=== PATIENT | female | born 1975 | race Two or more races ===

== ENCOUNTER → 2018-04-08 | Emergency (ER) | payer OTHER ==
[~2018-04-08] MED LIST: LACTULOSE 20 GM/30 ML UDC (FOR ORAL USE ONLY) ONE; LACTULOSE 20 GM/30 ML UDC (FOR ORAL USE ONLY) PO ONE
[2018-04-08 18:27] VITALS: BP 122/80; PULSE 66; TEMP 98.9; BMI 28.2
--- NOTE | 2018-04-08 20:41 | PDOC ---
History of Present Illness - General Chief Complaint: Constipation Stated Complaint: CONSTIPATION/28 WKS Time Seen by Provider: 04/08/18 20:40 Past History - Past Medical History Allergies/Adverse Reactions: Allergies Allergy/AdvReac Type Severity Reaction Status Date / Time No Known Allergies Allergy Verified 04/08/18 18:24 COPD: No - Suicide/Smoking/Psychosocial Hx Smoking History: Never smoked Have you smoked in the past 12 months: No Information on smoking cessation initiated: No Hx Alcohol Use: No Drug/Substance Use Hx: No Substance Use Type: None *Physical Exam - Vital Signs Last Vital Signs Temp Pulse Resp BP Pulse Ox 98.9 F 66 18 122/80 100 04/08/18 18:24 04/08/18 18:24 04/08/18 18:24 04/08/18 18:24 04/08/18 18:24 Medical Decision Making - Medical Decision Making 04/09/18 22:58 Pt came with complaint of constipation in . Walking about the ER. Pt was given a dose of lactulose and eloped prior to my full evaluation of her. *DC/Admit/Observation/Transfer Diagnosis at time of Disposition: Constipation - Discharge Dispostion Disposition: ELOPED Condition at time of disposition: Improved Decision to Admit order: No - Referrals Referrals: Queta Pavon MD [Primary Care Provider] - - Patient Instructions Printed Discharge Instructions: DI for Constipation - Post Discharge Activity
== END | disposition left against medical advice (07) ==
LOC: JER 18:08
DX: O26.893 Other specified pregnancy related conditions, third trimester (principal); R19.8 Other specified symptoms and signs involving the digestive system and abdomen; K59.00 Constipation, unspecified; Z3A.28 28 weeks gestation of pregnancy
CPT/HCPCS: 99282-25

== ENCOUNTER 2018-05-25 12:40 | Inpatient (IN) | payer OTHER ==
[2018-05-25] MEDS ORDERED: ELECTROLYTE-148 SOLN 500 ML IV ONE (13:00)
[2018-05-25 13:06] VITALS: BMI 30.7
[2018-05-25] MEDS: ELECTROLYTE-148 SOLN 1,000 ML IV SCH ×2 (13:30→15:10)
[2018-05-25 13:54] LABS: BASO % 0.3 % (0-2.0); EOS % 0.4 % (0-4.5); LYMPH % 36.9 % (8-40); MCHC 32.3 g/dl (32.0-36.0); MEAN CELL VOLUME 68.2 fl (80-96); MEAN PLT VOLUME 9.2 fl (7.5-11.1); MONO % 8.6 % (3.8-10.2); NEUT % 53.8 % (42.8-82.8); PLATELET COUNT 223 K/MM3 (134-434); RBC 4.98 M/mm3 (3.60-5.2); RDW 15.1 % (11.6-15.6); WHITE BLOOD COUNT 6.4 K/mm3 (4.0-10.0)
[2018-05-25 14:07] LABS: INR 0.96 (0.82-1.09); PROTHROMBIN TIME (PATIENT) 10.9 SEC (9.7-13.0)
[2018-05-25] MEDS ORDERED: CITRIC ACID/SODIUM CITRATE 30 ML UNIT-DOSE CUP PO ONE (14:15)
[2018-05-25 14:16] LABS: ANION GAP 9 (8-16); BLOOD UREA NITROGEN 12 mg/dL (7-18); CALCIUM 9.2 mg/dL (8.5-10.1); CHLORIDE 109 mmol/L (98-107); CO2 21 mmol/L (21-32); CREATININE 0.5 mg/dL (0.55-1.02); GLUCOSE,RANDOM 54 mg/dL (74-106); POTASSIUM 3.9 mmol/L (3.5-5.1); SODIUM 139 mmol/L (136-145)
[2018-05-25 14:51] LABS: ANISOCYTOSIS 1+; MACROCYTOSIS 0; PLATELET ESTIMATE NORMAL
[2018-05-25] MEDS ORDERED: ePHEDrine SULFATE 50 MG/1 ML AMPULE ONE (16:41)
[2018-05-25] MEDS ORDERED: morphine SULFATE/Preservative Free 0.5 MG/ML (1cc Syringe) ONE (16:41)
[2018-05-25] MEDS ORDERED: BUPIVACAINE 0.75% IN DEXTROSE/PF 2ML AMPULE NR ONE (16:45)
--- NOTE | 2018-05-25 16:53 | HP ---
Past Medical History - Primary Care Physician PCP:: Dar Thomas - Admission Chief Complaint: 39 weeks, oblique lie . GDM, voluntary sterlization, AMA History of Present Illness: 43 yo g weeks with oblique lie c/o vaginal spotting , cx i cm , hed to Rt abdominal wall, c/s discussed , rba explained , wants tubal ligation, aware btl is permenant and has small failure risks and ectopic History Source: Patient Limitations to Obtaining History: Language Barrier - Past Medical History ...: 3 ...Para: 1 ...Term: 1 ...: 0 ...Spon : 1 ...Induced : 0 ...Multiple Gestation: 0 ...LMP: 08/28/17 ... Weeks Gestation by Dates: 39 ...EDC by Dates: 06/04/18 ...EDC by Sono: 06/01/18 Endocrine: Yes: Hyperparathyroidism (on ptu) - Past Surgical History Hx Myomectomy: No Hx Transabdominal Cerclage: No - Smoking History Smoking history: Never smoked Have you smoked in the past 12 months: No - Alcohol/Substance Use Hx Alcohol Use: No - Social History History of Recent Travel: No Home Medications - Allergies Allergies/Adverse Reactions: Allergies Allergy/AdvReac Type Severity Reaction Status Date / Time No Known Allergies Allergy Verified 04/26/18 12:23 - Home Medications Home Medications: Ambulatory Orders Ferrous Sulfate [Feosol] 325 mg PO TID 04/26/18 Glyburide/Metformin HCl [Glyburide-Metformin 2.5-500 mg] 2.5 mg PO BID 04/26/18 Levothyroxine [Synthroid -] 25 mcg PO DAILY 04/26/18 Vit/Iron Fum/Folic AC [ Tablet] 1 each PO DAILY 04/26/18 Review of Systems - Review of Systems Constitutional: reports: No Symptoms Eyes: reports: No Symptoms HENT: reports: No Symptoms Neck: reports: No Symptoms Cardiovascular: reports: No Symptoms Respiratory: reports: No Symptoms Gastrointestinal: reports: No Symptoms Genitourinary: reports: No Symptoms Breasts: reports: No Symptoms Reported Musculoskeletal: reports: No Symptoms Integumentary: reports: No Symptoms Neurological: reports: No Symptoms Endocrine: reports: No Symptoms Hematology/Lymphatic: reports: No Symptoms Psychiatric: reports: No Symptoms Physical Exam - Maternity Vital Signs: Vital Signs Temperature 98.4 F 05/25/18 12:40 Pulse Rate 80 05/25/18 12:40 Respiratory Rate 18 05/25/18 12:40 Blood Pressure 130/81 05/25/18 12:40 O2 Sat by Pulse Oximetry (%) Constitutional: Yes: Well Nourished, No Distress, Calm Eyes: Yes: WNL, Conjunctiva Clear, EOM Intact HENT: Yes: WNL, Atraumatic, Normocephalic Neck: Yes: WNL, Supple, Trachea Midline Cardiovascular: Yes: WNL, Regular Rate and Rhythm Breast(s): Yes: WNL - Abdominal Exam/OB Fundal Height: 40 Number of Fetuses: Single Presentation: Oblique Contractions: Yes Regularity: Irregular Monitor Mode: External Heart Rate Location: [facility] Category: I Accelerations: Uniform Decelerations: None - Vaginal Exam/OB Vaginal Bleediing: Bloody Show Speculum Exam: No Dilatation (cm): 1 Effacement (%): 50 Amniotic Membrane Status: Intact Presentation: Transverse/Shoulder Station: -4 - Physical Exam Musculoskeletal: Yes: WNL Edema: Yes Edema: LLE: Trace, RLE: Trace Deep Tendon Reflex Grade: Normal +2 Psychiatric: Yes: WNL - Labs Lab Results: CBC, BMP 05/25/18 13:40 05/25/18 13:40 Hemorrhage Risk Assessment - Risk Factors Medium Risk Factors: Yes: None High Risk Factors: Yes: Active bleeding on admission Risk Score: 3 Risk Level: High Risk Problem List - Problems (1) with 39 completed weeks gestation Code(s): Z3A.39 - 39 WEEKS GESTATION OF (2) Transverse lie of fetus Code(s): O32.2XX0 - MATERNAL CARE FOR TRANSVERSE AND OBLIQUE LIE, UNSP Qualifiers: Fetus number: single or unspecified fetus Qualified Code(s): O32.2XX0 - Maternal care for transverse and oblique lie, not applicable or unspecified (3) Hyperthyroidism affecting in third trimester Code(s): O99.283 - ENDO, NUTRITIONAL AND METAB DISEASES COMP PREG, THIRD TRI; E05.90 - THYROTOXICOSIS, UNSP WITHOUT THYROTOXIC CRISIS OR STORM (4) Advanced maternal age during Code(s): QGS5073 - (5) Admission for sterilization Code(s): Z30.2 - ENCOUNTER FOR STERILIZATION Assessment/Plan c/s, BTL, rba discussed
[2018-05-25] MEDS ORDERED: ceFAZolin SODIUM 1 GM VIAL ONE (17:01)
[2018-05-25] MEDS ORDERED: OXYTOCIN 10 UNITS/ML VIAL ONE ×2 (17:01→17:21)
[2018-05-25] MEDS ORDERED: WITCH HAZEL 50% (TUCKS) 40 PAD/JAR PAD TP PRN (17:48)
[2018-05-25] MEDS ORDERED: METHYLERGONOVINE MALEATE 0.2 MG/1 ML AMP IM PRN (17:48)
[2018-05-25] MEDS ORDERED: BENZOCAINE 20% 57 GM BOTTLE TP PRN (17:48)
[2018-05-25] MEDS ORDERED: IBUPROFEN 800 MG/8 ML IJ IVPB PRN (17:48)
[2018-05-25] MEDS ORDERED: oxyCODONE HCL 5 MG TABLET PO PRN (17:48)
[2018-05-25] MEDS ORDERED: BENZOCAINE 28 GM HEMORRHOIDAL OINTMENT PR PRN (17:48)
[2018-05-25] MEDS ORDERED: diphenhydrAMINE HCL 25 MG CAPSULE (FP) PO PRN (17:48)
--- NOTE | 2018-05-25 17:57 | SURG ---
Surgery Emissions Inspector Note Emissions Inspector: Alin Catherine PA-C Date of Service: 05/25/18 Diagnosis: 39 weeks, gestational diabetes, voluntary sterlization, advanced maternal age Procedure: section I was present for the entirety of the operative procedure. For further detail, please refer to operative report. Visit type - Case Type Case Type: Scheduled - New patient This patient is new to me today: Yes Date on this admission: 05/25/18
[2018-05-25] MEDS ORDERED: CEFAZOLIN 1 GM in DEXTROSE 5%-WATER - 50 ML IVPB SCH (18:00)
[2018-05-25] MEDS ORDERED: OXYTOCIN 20 UNITS in 0.9% NS 20 UNIT/1,000 ML INFUS.BAG IV SCH (18:00)
[2018-05-25] MEDS ORDERED: ONDANSETRON 4 MG/2 ML VIAL IVPUSH PRN (18:03)
--- NOTE | 2018-05-25 22:34 | OP ---
DATE OF OPERATION: 05/25/2018 PREOPERATIVE DIAGNOSIS: at 39 weeks, oblique lie, advanced maternal age, hypothyroidism, voluntary sterilization. POSTOPERATIVE DIAGNOSIS: at 39 weeks, oblique lie, advanced maternal age, hypothyroidism, voluntary sterilization. PROCEDURE: Primary low segment transverse section and bilateral tubal ligation. SURGEON: Dar Thomas MD WINDROWER OPERATOR: Alin Catherine PA-C ANESTHESIA: Spinal. ANESTHESIOLOGIST: Dolores Salazar DO ESTIMATED BLOOD LOSS: 500 mL. OPERATION: The patient was taken to the operating room with adequate spinal anesthesia. Abdomen and perineum were prepped and draped. Pfannenstiel abdominal skin incision was made. Abdominal wall was cut layer by layer until the peritoneum was exposed and incised. After entry to the abdominal cavity, the lower uterine segment was identified and an intravesicular fold of the peritoneum was established and the bladder was pushed down. A low transverse uterine incision was made and the incision was extended bilaterally. The amniotic sac was entered. Clear fluid. Baby was in transverse and delivered as a vertex without any difficulty. Placenta was delivered manually. The uterine cavity was cleared of all remaining tissue. The uterine incision was closed in 2 layers. The first layer was with 0 Biosyn continuous sutures and the second layer with 0 Biosyn imbricating the first layer. Bladder flap was closed with 0 Biosyn continuous suture. Both tubes and ovaries were checked and were normal. The right tube was grasped with Vickie clamp. Right tube was doubly tied with 2-0 plain. A portion of the tube was removed and endosalpinx was cauterized. The same procedure was repeated for the left tube. No active bleeding was seen. The pelvic cavity was several time irrigated. All of the lap, sponge, and instrument counts were correct. Then, the peritoneum was closed with 0 Biosyn continuous suture. Muscles were brought together with interrupted suture of 0 Biosyn. Fascia was closed with 0 Biosyn continuous suture. The subcutaneous fat with interrupted suture of 0 Biosyn and skin was closed with 3-0 Vicryl subcuticular continuous suture. Patient tolerated the procedure well and left the OR in good condition. Patrick [id number]
[2018-05-26] MEDS ORDERED: DEXTROSE 5%-WATER - 50 ML IVPB ONE ×2 (01:55→08:52)
[2018-05-26] MEDS ORDERED: ceFAZolin SODIUM 1 GM VIAL ONE ×2 (01:56→08:52)
[2018-05-26] MEDS: CEFAZOLIN 1 GM in DEXTROSE 5%-WATER - 50 ML IVPB SCH ×2 (02:01→09:11)
[2018-05-26] MEDS: LEVOTHYROXINE NA 25 MCG TABLET (FP) PO SCH (06:44)
--- NOTE | 2018-05-26 06:51 | PN ---
Progress Note (short form) - Note Progress Note: pod 1 doing well, no c/i CBC, BMP 05/25/18 13:40 05/25/18 13:40 Last Vital Signs Temp Pulse Resp BP Pulse Ox 98.8 F 75 20 120/77 100 05/26/18 05:10 05/26/18 05:10 05/26/18 06:00 05/26/18 05:10 05/25/18 18:45 abdomen soft, no distension, no cva incision dry, clean no calf tenderness plan ambulate, cbc advance diet Problem List - Problems (1) with 39 completed weeks gestation Code(s): Z3A.39 - 39 WEEKS GESTATION OF (2) Transverse lie of fetus Code(s): O32.2XX0 - MATERNAL CARE FOR TRANSVERSE AND OBLIQUE LIE, UNSP Qualifiers: Fetus number: single or unspecified fetus Qualified Code(s): O32.2XX0 - Maternal care for transverse and oblique lie, not applicable or unspecified (3) Hyperthyroidism affecting in third trimester Code(s): O99.283 - ENDO, NUTRITIONAL AND METAB DISEASES COMP PREG, THIRD TRI; E05.90 - THYROTOXICOSIS, UNSP WITHOUT THYROTOXIC CRISIS OR STORM (4) Advanced maternal age during Code(s): LOL2862 - (5) Admission for sterilization Code(s): Z30.2 - ENCOUNTER FOR STERILIZATION
[2018-05-26 07:58] LABS: BASO % 0.4 % (0-2.0); EOS % 0.4 % (0-4.5); HEMATOCRIT 31.9 % (32.4-45.2); HEMOGLOBIN 10.4 GM/dL (10.7-15.3); LYMPH % 23.2 % (8-40); MCH 22.4 pg (25.7-33.7); MCHC 32.5 g/dl (32.0-36.0); PLATELET COUNT 161 K/MM3 (134-434); RBC 4.63 M/mm3 (3.60-5.2); RDW 15.1 % (11.6-15.6); WHITE BLOOD COUNT 7.3 K/mm3 (4.0-10.0)
[2018-05-26] MEDS: ACETAMINOPHEN 325 MG TABLET (FP) PO PRN ×2 (09:11→14:14)
[2018-05-26] MEDS: SIMETHICONE 80 MG TAB.CHEW (FP) PO PRN ×2 (09:11→14:14)
[2018-05-26] MEDS: ENOXAPARIN NA (PORCINE) 40 MG/0.4 ML DISP.SYRIN SQ SCH (09:11)
[2018-05-26] MEDS: IBUPROFEN 600 MG TABLET (FP) PO PRN ×2 (09:12→14:15)
--- NOTE | 2018-05-26 16:15 | PN ---
Progress Note (short form) - Note Progress Note: Anesthesia post op Pt seen and examined S:Awake alert comfortable O: CBC, BMP 05/26/18 06:50 05/25/18 13:40 Vital Signs Temperature 97.6 F 05/26/18 13:00 Pulse Rate 86 05/26/18 13:00 Respiratory Rate 20 05/26/18 14:00 Blood Pressure 135/79 05/26/18 13:00 O2 Sat by Pulse Oximetry (%) 100 05/25/18 18:45 A/P Current Active Problems Admission for sterilization (Acute) Advanced maternal age during (Acute) Hyperthyroidism affecting in third trimester (Acute) with 39 completed weeks gestation (Acute) Transverse lie of fetus (Acute) S/p c section Doing well post op Continue current care Jonathan Ward MD
[2018-05-26] MEDS ORDERED: BISACODYL 10 MG SUPP.RECT RC PRN (17:49)
[2018-05-26] MEDS: DEXTROSE 5%-LACTATED RINGERS 1,000 ML IV SCH (19:28)
[2018-05-26] MEDS: ELECTROLYTE-148 SOLN 1,000 ML IV SCH (19:29)
[2018-05-27] MEDS: LEVOTHYROXINE NA 25 MCG TABLET (FP) PO SCH (06:12)
[2018-05-27] MEDS: IBUPROFEN 600 MG TABLET (FP) PO PRN ×5 (06:17→22:11)
[2018-05-27] MEDS: ACETAMINOPHEN 325 MG TABLET (FP) PO PRN ×2 (06:17→10:06)
[2018-05-27] MEDS: SIMETHICONE 80 MG TAB.CHEW (FP) PO PRN ×5 (06:17→22:11)
[2018-05-27] MEDS: ENOXAPARIN NA (PORCINE) 40 MG/0.4 ML DISP.SYRIN SQ SCH (10:08)
--- NOTE | 2018-05-27 11:24 | PN ---
Post Progress Note - Subjective Subjective: Pt POD#2 s/p c/s without complaints. Breast and bottle feeding. Tolerating diet. Voiding. TL for contraception Post Day: 2 Type of Delivery: Primary C/S Vital Signs: Vital Signs Temperature 99.0 F 05/27/18 08:29 Pulse Rate 93 H 05/27/18 08:29 Respiratory Rate 18 05/27/18 08:29 Blood Pressure 120/74 05/27/18 08:29 O2 Sat by Pulse Oximetry (%) 100 05/25/18 18:45 Breast Exam: Yes: Soft Uterus: Yes: Fundus Firm Incision: Yes: Dressing dry and intact Abdomen/GI: Yes: Abdomen soft Lochia, amount: Small Extremities: Yes: Calves non-tender Activity: Ambulating - Labs Labs: CBC WBC 7.3 K/mm3 (4.0-10.0) 05/26/18 06:50 RBC 4.63 M/mm3 (3.60-5.2) 05/26/18 06:50 Hgb 10.4 GM/dL (10.7-15.3) L 05/26/18 06:50 Hct 31.9 % (32.4-45.2) L 05/26/18 06:50 MCV 69.0 fl (80-96) L 05/26/18 06:50 MCH 22.4 pg (25.7-33.7) L 05/26/18 06:50 MCHC 32.5 g/dl (32.0-36.0) 05/26/18 06:50 RDW 15.1 % (11.6-15.6) 05/26/18 06:50 Plt Count 161 K/MM3 (134-434) D 05/26/18 06:50 MPV 9.0 fl (7.5-11.1) 05/26/18 06:50 Absolute Neuts (auto) 5.0 # 05/26/18 06:50 Neutrophils % 69.0 % (42.8-82.8) D 05/26/18 06:50 Lymphocytes % 23.2 % (8-40) D 05/26/18 06:50 Monocytes % 7.0 % (3.8-10.2) 05/26/18 06:50 Eosinophils % 0.4 % (0-4.5) 05/26/18 06:50 Basophils % 0.4 % (0-2.0) 05/26/18 06:50 Nucleated RBC % 0 % (0-0) 05/26/18 06:50 Hypochromia 0 05/25/18 13:40 Platelet Estimate Normal 05/25/18 13:40 Polychromasia 1+ 05/25/18 13:40 Poikilocytosis 1+ 05/25/18 13:40 Anisocytosis 1+ 05/25/18 13:40 Microcytosis 1+ 05/25/18 13:40 Macrocytosis 0 05/25/18 13:40 Problem List - Problems (1) care following delivery Assessment/Plan: Pt POD#2 s/p c/s with btl doing well ambulation encouraged incentive spirometry plan for discharge home tomorrow if continues to do well f/u for wound check in 2 weeks Code(s): Z39.2 - ENCOUNTER FOR ROUTINE FOLLOW-UP
[2018-05-27] MEDS: oxyCODONE HCL 5 MG TABLET PO PRN ×3 (13:34→22:12)
[2018-05-27 20:31] VITALS: TEMP 98
[2018-05-27] MEDS ORDERED: SENNOSIDES/DOCUSATE COMBO (SENNA PLUS) TABLET (UD) PO PRN (22:00)
[2018-05-28] MEDS: IBUPROFEN 600 MG TABLET (FP) PO PRN ×4 (02:14→14:16)
[2018-05-28] MEDS: oxyCODONE HCL 5 MG TABLET PO PRN ×4 (02:14→14:15)
[2018-05-28] MEDS: SIMETHICONE 80 MG TAB.CHEW (FP) PO PRN ×4 (02:14→14:15)
[2018-05-28] MEDS: LEVOTHYROXINE NA 25 MCG TABLET (FP) PO SCH (06:28)
[2018-05-28 07:32] LABS: BASO % 1.3 % (0-2.0); EOS % 2.1 % (0-4.5); HEMOGLOBIN 9.2 GM/dL (10.7-15.3); LYMPH % 22.2 % (8-40); MCH 22.5 pg (25.7-33.7); MEAN CELL VOLUME 68.2 fl (80-96); MEAN PLT VOLUME 8.4 fl (7.5-11.1); NEUT % 65.4 % (42.8-82.8); PLATELET COUNT 203 K/MM3 (134-434); RBC 4.11 M/mm3 (3.60-5.2); RDW 15.4 % (11.6-15.6); WHITE BLOOD COUNT 6.7 K/mm3 (4.0-10.0)
[2018-05-28 08:56] VITALS: BP 122/72; PULSE 65
[2018-05-28] MEDS: ENOXAPARIN NA (PORCINE) 40 MG/0.4 ML DISP.SYRIN SQ SCH (09:25)
--- NOTE | 2018-05-30 17:26 | PATH ---
Surgical Pathology Report Patient Name: ELLEN RODRIGUEZ [facility]. Rec. #: [id number] /Age/Gender: 1975 (Age: 43) / F Account: [id number] Location: [facility] OBS/COMMUNITY HEALTH SPECIALIST Taken: 05/25/2018 Received: 05/26/2018 Reported: 05/30/2018 Physicians: Dar Thomas M.D. Specimen(s) Received A: PLACENTA B: LEFT FALLOPIAN TUBE C: RIGHT FALLOPIAN TUBE Clinical History , 39 weeks, transverse oblique lie, gestational diabetes, hypothyroidism Final Diagnosis A. PLACENTA, SECTION: 547 g THIRD TRIMESTER PLACENTA WITH TRIVASCULAR UMBILICAL CORD AND UNREMARKABLE PLACENTAL MEMBRANES B. FALLOPIAN TUBE, LEFT, PARTIAL EXCISION: FULL LUMINAL PORTION OF UNREMARKABLE FALLOPIAN TUBE. C. FALLOPIAN TUBE, RIGHT, PARTIAL EXCISION: FULL LUMINAL PORTION OF UNREMARKABLE FALLOPIAN TUBE. Electronically Signed Bindu Valencia M.D. Gross Description A. The specimen is received fresh labeled placenta and is a 547 gram, 16.5 x 15.5 x 3.2 cm. placenta with attached membranes and umbilical cord. The attached membranes are roth, translucent with focal opacities and insert marginally. The umbilical cord measures 27 cm. in length and averages 0.9 cm. in diameter. The cord inserts eccentrically, 4 cm. to the nearest margin. No true knots or strictures are identified. Cut surface of the umbilical cord reveals 3 vessels. The surface is galeas-blue with minimal fibrin deposition and appropriate caliber vessels. The maternal surface is red-brown with focal defects. Sectioning reveals red-brown, spongy parenchyma. No lesions are identified. Escort Blind sections are submitted in three cassettes as follows: 1- membrane rolls and umbilical cord; 2-3- full thickness sections of placenta. B. Received in formalin labeled "left fallopian tube," is a 1.8 cm in length portion of fallopian tube. No fimbria are present. The outer surface is roth-merrill and smooth. Sectioning reveals an unremarkable lumen. Escort Blind sections are submitted in one cassette. C. Received in formalin labeled "right fallopian tube," is a 1.5 cm in length portion of fallopian tube. No fimbria are present. The outer surface is roth-merrill and smooth. Sectioning reveals an unremarkable lumen. Escort Blind sections are submitted in one cassette. 05/29/2018 [facility]05/29/2018
== END 2018-05-28 14:50 | disposition home or self-care (01) | DRG 540 ==
LOC: JLDR 12:40 → J3W 19:45
PROVIDERS: ADMIT Obstetrics & Gynecology; ATTEND Obstetrics & Gynecology
PROC: 10D00Z1 Extraction of Products of Conception, Low, Open Approach (ICD-10-PCS; principal; 2018-05-25)
PROC: 0UL70ZZ Occlusion of Bilateral Fallopian Tubes, Open Approach (ICD-10-PCS; 2018-05-25)
DX: O32.2XX0 Maternal care for transverse and oblique lie, not applicable or unspecified (principal); O24.415 Gestational diabetes mellitus in pregnancy, controlled by oral hypoglycemic drugs; O99.284 Endocrine, nutritional and metabolic diseases complicating childbirth; E21.3 Hyperparathyroidism, unspecified; Z3A.39 39 weeks gestation of pregnancy; Z37.0 Single live birth; Z30.2 Encounter for sterilization
CPT/HCPCS: 36415; 71046-TC-FY; 80048; 82962; 85025; 85610; 85730; 86593; 86850; 86900; 86901

== ENCOUNTER 2020-01-09 11:20 | Emergency (ER) | payer OTHER ==
[2020-01-09 11:50] VITALS: BMI 25.5
[2020-01-09] MEDS ORDERED: ACETAMINOPHEN 325 MG TABLET (FP) PO ONE (12:11)
[2020-01-09] MEDS ORDERED: ACETAMINOPHEN 325 MG TABLET (FP) ONE (12:16)
--- NOTE | 2020-01-09 12:44 | PDOC ---
History of Present Illness - General Chief Complaint: Cold Symptoms Stated Complaint: COLD SYS Time Seen by Provider: 01/09/20 11:55 History Source: Patient - History of Present Illness Timing/Duration: reports: yesterday Associated Symptoms: reports: cough Past History - Past Medical History Allergies/Adverse Reactions: Allergies Allergy/AdvReac Type Severity Reaction Status Date / Time No Known Allergies Allergy Verified 01/09/20 11:50 Home Medications: Ambulatory Orders Ferrous Sulfate [Feosol] 325 mg PO TID 04/26/18 Glyburide/Metformin HCl [Glyburide-Metformin 2.5-500 mg] 2.5 mg PO BID 04/26/18 Levothyroxine [Synthroid -] 25 mcg PO DAILY 04/26/18 Vit/Iron Fum/Folic AC [ Tablet] 1 each PO DAILY 04/26/18 Oseltamivir Phosphate [Tamiflu] 75 mg PO BID #10 capsule 01/09/20 Anemia: Yes Asthma: No Cancer: No Cardiac Disorders: No COPD: No Diabetes: No (Gestational DM w/ this ) HTN: No Seizures: No Thyroid Disease: Yes (Hypothyroidism - on medication) - Immunization History Immunization Up to Date: Yes - Psycho Social/Smoking Cessation Hx Smoking History: Never smoked Have you smoked in the past 12 months: No Information on smoking cessation initiated: No Hx Alcohol Use: No Drug/Substance Use Hx: No Substance Use Type: None Hx Substance Use Treatment: No Review of Systems - Review of Systems Constitutional: Yes: Fever, Malaise HEENTM: No: Ear Pain, Throat Pain Respiratory: Yes: Cough. No: Shortness of Breath, Wheezing Cardiac (ROS): No: Chest Pain *Physical Exam - Vital Signs Last Vital Signs Temp Pulse Resp BP Pulse Ox 102.6 F H 103 H 20 127/76 100 01/09/20 11:46 01/09/20 11:46 01/09/20 11:46 01/09/20 11:46 01/09/20 11:46 - Physical Exam 01/09/20 12:43 edna ill General Appearance: Yes: Appropriately Dressed, Other HEENT: positive: Normal ENT Inspection, Normal Voice, TMs Normal, Pharynx Normal. negative: Scleral Icterus (R), Scleral Icterus (L) Neck: positive: Supple. negative: Lymphadenopathy (R), Lymphadenopathy (L) Respiratory/Chest: positive: Lungs Clear, Normal Breath Sounds. negative: Respiratory Distress Cardiovascular: positive: Regular Rate, S1, S2 Integumentary: positive: Dry, Warm Neurologic: positive: Fully Oriented, Alert, Normal Mood/Affect ED Treatment Course - Medications Given in the ED: ED Medications Discontinued Medications Generic Name Dose Route Start Last Admin Trade Name Edna PRN Reason Stop Dose Admin Acetaminophen 650 mg 01/09/20 12:11 01/09/20 12:17 Tylenol - PO 01/09/20 12:12 650 mg ONCE ONE Administration Medical Decision Making - Medical Decision Making 01/09/20 12:42 44-year-old female no significant history, here with body aches, headache, cough and fever since yesterday. No SOB, CP, diarrhea, neck pain, or photophobia. No recent travel or known sick contacts see exam Viral syndrome, r/o flu -Dose of tylenol for T of 102, exam unremarkable otherwise 01/09/20 13:06 Flu +. T 99 w/ HR 106 on rpt vitals. Dc w/ tamiflu and supportive tx. Contact precautions given Discharge - Discharge Information Problems reviewed: Yes Clinical Impression/Diagnosis: Influenza A Condition: Improved Disposition: HOME - Additional Discharge Information Prescriptions: Oseltamivir Phosphate [Tamiflu] 75 mg PO BID #10 capsule - Follow up/Referral Referrals: Queta Pavon MD [Primary Care Provider] - - Patient Discharge Instructions Patient Printed Discharge Instructions: Influenza Additional Instructions: Take Tamiflu as directed and continue taking Motrin or Tylenol for aches and fever, rest and drink plenty fluids - Post Discharge Activity
[2020-01-09 13:17] VITALS: BP 107/71; PULSE 106; TEMP 99.9
== END 2020-01-09 13:30 | disposition home or self-care (01) ==
LOC: JERFT 11:20
DX: J09.X2 Influenza due to identified novel influenza A virus with other respiratory manifestations (principal)
CPT/HCPCS: 87804; 99282-25

== ENCOUNTER 2020-11-24 06:07 | Emergency (ER) | payer OTHER ==
[2020-11-24 06:44] VITALS: BP 128/85; PULSE 98; TEMP 98.6; BMI 29.7
[2020-11-24] MEDS ORDERED: SODIUM CHLORIDE 1,000 ML IV STA (07:35)
[2020-11-24] MEDS ORDERED: METOCLOPRAMIDE HCL INJECTION 10 MG/2 ML VIAL IVPB ONE (07:35)
[2020-11-24] MEDS ORDERED: METOCLOPRAMIDE HCL INJECTION 10 MG/2 ML VIAL ONE (07:40)
[2020-11-24 08:19] LABS: BASO % 0.3 % (0-2.0); EOS % 0.1 % (0-4.5); HEMOGLOBIN 9.6 GM/dL (10.7-15.3); LYMPH % 23.8 % (8-40); MCH 20.4 pg (25.7-33.7); MEAN CELL VOLUME 63.7 fl (80-96); MEAN PLT VOLUME 8.9 fl (7.5-11.1); MONO % 13.6 % (3.8-10.2); NEUT % 62.2 % (42.8-82.8); PLATELET COUNT 211 K/MM3 (134-434); RBC 4.71 M/mm3 (3.60-5.2); RDW 15.7 % (11.6-15.6); WHITE BLOOD COUNT 2.6 K/mm3 (4.0-10.0)
[2020-11-24 08:24] LABS: POTASSIUM 3.7 mmol/L (3.5-5.1)
[2020-11-24 08:25] LABS: CALCIUM 8.7 mg/dL (8.5-10.1)
[2020-11-24 08:26] LABS: ALBUMIN 3.8 g/dl (3.4-5.0); BLOOD UREA NITROGEN 6.6 mg/dL (7-18)
[2020-11-24 08:29] LABS: CREATININE 0.7 mg/dL (0.55-1.3)
[2020-11-24] MEDS ORDERED: LACTATED RINGERS SOLUTION 1000 ML INFUS.BAG IV ONE (08:29)
[2020-11-24 08:30] LABS: BILIRUBIN,TOTAL 0.8 mg/dL (0.2-1); TOT PROT 7.6 g/dl (6.4-8.2)
[2020-11-24 12:40] LABS: ANISOCYTOSIS 1+; MACROCYTOSIS 0; OVALOCYTE 1+; PLATELET ESTIMATE NORMAL
== END 2020-11-24 09:56 | disposition home or self-care (01) ==
LOC: JER 06:07
PROC: 3E033NZ Introduction of Analgesics, Hypnotics, Sedatives into Peripheral Vein, Percutaneous Approach (ICD-10-PCS; principal; 2020-11-24)
PROC: 3E0337Z Introduction of Electrolytic and Water Balance Substance into Peripheral Vein, Percutaneous Approach (ICD-10-PCS; 2020-11-24)
DX: R53.83 Other fatigue (principal); B34.9 Viral infection, unspecified; G44.209 Tension-type headache, unspecified, not intractable; D64.9 Anemia, unspecified
CPT/HCPCS: 36415; 80053; 84439; 84443; 85025; 87426; 99285-25